=== PATIENT | female | born 1945 | race Caucasian/White ===

== ENCOUNTER 2017-06-23 12:24 | Emergency (ER) | payer MEDICARE, OTHER ==
--- NOTE | 2017-06-23 14:51 | RAD ---
RIGHT KNEE 4 VIEWS: HISTORY: Right knee pain. FINDINGS: No acute fracture or dislocation is identified. POS: [facility]
== END 2017-06-23 13:40 | disposition home or self-care (01) ==
LOC: ERS 12:24
DX: S83.91XA Sprain of unspecified site of right knee, initial encounter (principal); I48.91 Unspecified atrial fibrillation; E78.5 Hyperlipidemia, unspecified; I10 Essential (primary) hypertension; Z79.01 Long term (current) use of anticoagulants; Z79.899 Other long term (current) drug therapy; X50.1XXA Overexertion from prolonged static or awkward postures, initial encounter

== ENCOUNTER 2018-06-06 14:14 | Emergency (ER) | payer MEDICARE, OTHER ==
--- NOTE | 2018-06-06 15:54 | RAD ---
RADIOGRAPH PELVIS 1 VIEW: 06/06/18 HISTORY: 72-year-old female with pelvic pain. FINDINGS: Diffuse osteopenia. No dislocation. Femoral head contours are maintained. No significant bilateral hi p joint space narrowing. No grossly displaced fracture identified. Degenerative changes of lower lumb ar spine, incompletely imaged. IMPRESSION: 1. Lower lumbar spondylosis. 2. Otherwise negative. POS: [facility]
== END 2018-06-06 16:08 | disposition home or self-care (01) ==
LOC: ERS 14:14
DX: M54.41 Lumbago with sciatica, right side (principal); E78.5 Hyperlipidemia, unspecified; I48.91 Unspecified atrial fibrillation
CPT/HCPCS: 72170

== ENCOUNTER 2018-06-10 09:07 | Emergency (ER) | payer MEDICARE, OTHER ==
[2018-06-10] MEDS ORDERED: Dexamethasone 4 MG TAB ONE (11:15)
[2018-06-10] MEDS ORDERED: Acetaminophen/Codeine 30-300mg Tablet ONE (11:15)
[2018-06-10] MEDS ORDERED: Cyclobenzaprine 10 MG TAB ONE (11:15)
--- NOTE | 2018-06-10 11:51 | CT ---
NONCONTRAST CT LUMBAR SPINE: Date: 06/10/18 HISTORY: Right-sided back pain and numbness. Patient also complains of right groin and buttock pain, as well a s right upper leg pain for 2 months. COMPARISON: None available. FINDINGS: There is atelectasis versus scarring at each lung base. Calcified granuloma seen in the spleen. Vascular calcifications seen in the abdominal aorta involving the iliac arteries. Visualized retroperitoneal structures otherwise demonstrate a grossly normal nonenhanced CT appearanc e. Degenerative changes are seen in the lumbar spine. There is Grade I anterolisthesis of L4 on L5. T11-12 Level: There is vacuum phenomenon seen in the intervertebral discs. There are facet hypertrop hic changes seen on the left resulting in mild left-sided neural foraminal narrowing. There is mild e ffacement on the left posterolateral aspect of the subarachnoid space. Right neural foramen is patent . T12-L1 Level: There is no significant disc bulge or disc herniation. Central spinal canal and neural foramina are patent. L1-L2 Level: There is no disc bulge or disc herniation. Central spinal canal and neural foramina are patent. L2-L3 Level: There is a broad based disc osteophyte complex and facet hypertrophic changes. Findings result in mild narrowing of the central spinal canal. There is mild bilateral neural foraminal narro wing present. L3-L4 Level: There is a mild broad based disc osteophyte complex with mild facet degenerative change s present. There is mild narrowing of the central spinal canal. There is minimal bilateral neural for aminal narrowing. L4-L5 Level: There is Grade I anterolisthesis of L4 on L5 with the degree of listhesis measuring dylan roximately 4.0 mm. There is a broad based disc osteophyte complex and moderate facet hypertrophic adore nges and ligamentous thickening. Findings result in severe narrowing of the central spinal canal, as well as narrowing of the lateral recesses. There is also suggestion of a right paracentral disc extru seng which extends superiorly, likely affecting the traversing right L5 nerve root. The area of soft tissue density also abuts the exiting right L4 nerve root. There is moderate to severe right-sided ne ural foraminal narrowing. The left neural foramen is patent. L5-S1 Level: There is a mild broad based disc osteophyte complex and mild ligamentous thickening wit h severe facet hypertrophic changes. There is moderate narrowing of the central spinal canal. There i s mild bilateral neural foraminal narrowing. The traversing bilateral S1 nerve roots may potentially be affected due to the disc osteophyte complex. IMPRESSION: Multilevel degenerative changes in the lumbar spine, greatest at the L4-5 level, where there is a bro ad based disc osteophyte complex with soft tissue density seen posteriorly on the right which likely represents associated disc extrusion extending superiorly. This may affect the traversing right L5 ne rve root and also appears to contact the exiting right L4 nerve root. There is severe narrowing of th e central spinal canal at this level, as well as narrowing of the lateral recesses. POS: [facility]
== END 2018-06-10 11:51 | disposition home or self-care (01) ==
LOC: ERS 09:07
DX: M51.26 Other intervertebral disc displacement, lumbar region (principal); M48.061 Spinal stenosis, lumbar region without neurogenic claudication; I48.91 Unspecified atrial fibrillation; E78.5 Hyperlipidemia, unspecified; I10 Essential (primary) hypertension; Z79.01 Long term (current) use of anticoagulants; Z79.899 Other long term (current) drug therapy
CPT/HCPCS: 72131; J8540

== ENCOUNTER 2018-07-17 09:53 | Outpatient (CLI) | payer MEDICARE, OTHER | END 2018-07-17 09:54 | disposition home or self-care (01) | LOC: BICMAMMO 09:53 | PROVIDERS: ATTEND Family Medicine | DX: N63.24 Unspecified lump in the left breast, lower inner quadrant (principal) | CPT/HCPCS: 77065; G0279 ==

== ENCOUNTER 2020-03-05 11:11 | Observation (INO) | payer MEDICARE, OTHER ==
[2020-03-05 11:47] LABS: #Monocytes 0.4 thou/uL (0.11-0.59); %Eosinophils 0.9 % (0.0-10.0); %Lymphocytes 22.4 % (21.0-51.0); %Monocytes 9.3 % (0.0-10.0); %Neutrophils 66.5 % (42.0-75.0); Hemoglobin 12.6 g/dL (12.0-16.0); Mean Corpuscular HGB CONC 34.2 g/dL (32.0-36.0); Mean Corpuscular Hemoglobin 33.3 pg (27.0-31.0); Mean Corpuscular Volume 97.1 fL (78.0-98.0); Mean Platelet Volume 7.1 fL (7.4-10.4); Platelet Count 198 thou/uL (130-400); RBC Distribution Width 13.1 % (11.5-14.5); White Blood Cell (WBC) Count 4.5 thou/uL (4.8-10.8)
[2020-03-05 12:16] LABS: ALT (SGPT) 13 U/L (8-55); AST (SGOT) 17 U/L (5-34); Albumin 4.2 g/dL (3.4-4.8); Alkaline Phosphatase 67 U/L (40-110); Anion Gap 14 mmol/L (10-20); BUN (Urea Nitrogen) 20 mg/dL (9.8-20.1); Bilirubin, Total 0.5 mg/dL (0.2-1.2); Calc. Creatinine Clearance 0 mL/min (70-130); Calcium 9.2 mg/dL (7.8-10.44); Carbon Dioxide 25 mmol/L (23-31); Chloride 103 mmol/L (98-107); Estimated GFR-MDRD 62; Globulin 3.3 g/dL (2.4-3.5); Glucose 110 mg/dL (83-110); Potassium 4.4 mmol/L (3.5-5.1); Protein, Total 7.5 g/dL (6.0-8.3); Sodium 138 mmol/L (136-145)
[2020-03-05 12:22] LABS: Bacteria/HPF None Seen HPF (None Seen); Bilirubin Negative (Negative); Blood, Urine Negative (Negative); Clarity Clear (Clear); Glucose, Urine (Dipstick) Normal (Negative); Ketone, Urine Negative (Negative); Leukocyte 25 Leu/uL (Negative); Nitrite Negative (Negative); Protein, Urine (Dipstick) Negative (Neg-Trace); RBC/HPF 0-3 HPF (0-3); Squamous Epithelial 0-3 HPF (0-3); Urobilinogen Normal mg/dL (Less than 2); WBC/HPF 0-3 HPF (0-3); pH, Urine 6.5 (5.0-9.0)
--- NOTE | 2020-03-05 12:24 | RAD ---
PORTABLE CHEST: INDICATIONS: Dizziness and weakness. COMPARISON: 07/08/2016 FINDINGS: Mild cardiomegaly is stable. Pacemaker leads are unchanged. Lungs appear clear of infiltrate. No evid ence of vascular congestion or edema. The densely calcified nodule in the left mid lung is again note d. IMPRESSION: No acute process. POS: [facility]
--- NOTE | 2020-03-05 12:28 | CT ---
CT head noncontrast HISTORY: Dizziness. Weakness. FINDINGS: There is no evidence of acute intracranial hemorrhage or infarct. The ventricles appear nor mal in size, shape and position. There is no mass effect or shift of midline structures. IMPRESSION : No abnormalities are demonstrated.
[2020-03-05 15:33] LABS: Troponin I Less than 0.010 ng/mL (< 0.028)
[2020-03-05] MEDS ORDERED: Senokot S 8.6-50 MG TAB PO PRN (16:18)
[2020-03-05] MEDS ORDERED: Acetaminophen 325 MG TAB PO PRN (16:18)
[2020-03-05] MEDS ORDERED: Sodium Chloride 0.9% 1,000 ML IV SCH (16:30)
[2020-03-05] MEDS ORDERED: Warfarin Sodium 2.5 MG TAB PO SCH ×2 (17:00→23:59)
[2020-03-05] MEDS ORDERED: Carvedilol 6.25 MG TAB PO SCH (17:00)
[2020-03-05 17:08] LABS: INR-International Normal Ratio 1.8; PTT 35.1 sec (22.9-36.1); Prothrombin Time 20.9 sec (12.0-14.7)
[2020-03-05 17:42] LABS: Troponin I Less than 0.010 ng/mL (< 0.028)
[2020-03-05 18:32] VITALS: BMI 28.2
[2020-03-05] MEDS: Sotalol HCl 80 MG TAB PO SCH (20:35)
[2020-03-05] MEDS ORDERED: Rosuvastatin 5 MG TAB PO SCH (21:00)
[2020-03-05] MEDS ORDERED: Famotidine 20 MG TAB PO SCH (21:00)
[2020-03-06 04:29] LABS: #Lymphocytes 1.3 thou/uL (1.20-3.40); #Monocytes 0.4 thou/uL (0.11-0.59); #Neutrophils 2.6 thou/uL (1.40-6.50); %Basophils 0.5 % (0.0-1.0); %Eosinophils 0.8 % (0.0-10.0); %Lymphocytes 29.9 % (21.0-51.0); %Monocytes 9.9 % (0.0-10.0); Hemoglobin 10.5 g/dL (12.0-16.0); Mean Corpuscular HGB CONC 32.4 g/dL (32.0-36.0); Mean Corpuscular Hemoglobin 31.7 pg (27.0-31.0); Mean Corpuscular Volume 97.9 fL (78.0-98.0); Mean Platelet Volume 6.7 fL (7.4-10.4); Platelet Count 175 thou/uL (130-400); RBC Distribution Width 13.2 % (11.5-14.5); Red Blood Cell (RBC) Count 3.32 mill/uL (4.20-5.40); White Blood Cell (WBC) Count 4.4 thou/uL (4.8-10.8)
[2020-03-06 04:38] LABS: INR-International Normal Ratio 1.9; PTT 36.7 sec (22.9-36.1); Prothrombin Time 21.3 sec (12.0-14.7)
[2020-03-06 04:55] LABS: Anion Gap 10 mmol/L (10-20); BUN (Urea Nitrogen) 16 mg/dL (9.8-20.1); Calc. Creatinine Clearance 85 mL/min (70-130); Calcium 8.4 mg/dL (7.8-10.44); Carbon Dioxide 26 mmol/L (23-31); Chloride 106 mmol/L (98-107); Estimated GFR-MDRD 69; Glucose 87 mg/dL (83-110); Potassium 4.2 mmol/L (3.5-5.1); Sodium 138 mmol/L (136-145)
[2020-03-06 05:06] VITALS: TEMP 98.4
[2020-03-06] MEDS ORDERED: Spironolactone 25 MG TAB PO SCH (08:00)
[2020-03-06] MEDS ORDERED: Vit A,C & E/Lutein/Minerals Tablet PO SCH (09:00)
[2020-03-06] MEDS ORDERED: Sotalol HCl 80 MG TAB PO SCH (09:00)
[2020-03-06] MEDS: Sotalol HCl 80 MG TAB PO SCH (09:51)
[2020-03-06 11:40] VITALS: BP 128/78
[2020-03-06 11:59] LABS: SARS-CoV-2 MS2 Positive; SARS-CoV-2 N Gene Negative; SARS-CoV-2 S Gene Negative; SARS-CoV-2 by NAA Not Detected (NotDetected); SARS-CoV-2 orf1ab Negative
--- NOTE | 2020-03-06 15:18 | HP ---
PRIMARY CARE PHYSICIAN: Dr. Red. DISHWASHER PREPARER: Ulysses Callejas MD CHIEF COMPLAINT: Dizziness and lightheadedness. HISTORY OF PRESENT ILLNESS: Ms. Dang is a very pleasant 74-year-old female who reported to the emergency room today after having some dizziness and lightheadedness this morning. She reported that she took her blood pressure and systolic was in the 80s. She was started on Entresto [address] Callejas and she reports that her blood pressure has been on the lower side since she started taking it. She reported this to his office and he told her to extend the amount of time that she was to take 1 tablet once a day to 2 weeks instead of one. She did this, started taking the tablet twice a day this week and it is when she has noticed that her blood pressure and she was getting lightheaded when she changed positions. When she had the lightheaded headedness this morning, kind of a near syncope episode, she was afraid that she would actually pass out and that her would not know quite what to do, so she decided to come to the emergency room to get it checked out. She does have a pacemaker for an arrhythmia. The battery was changed by Dr. Bocanegra on Friday. She has also been on Coumadin and has been on this for quite some time, and she reports that she was asked to stop taking it for a few days before the procedure as her INR had gone into the 3s. She had the procedure when that was rechecked and it was down to 1.7, and she said she has been trying to get it back up into the 2s since that time. She said she has had quite a bit of Cardiology workup in the last couple of months as they were trying to decide if she just needed the battery change for her pacemaker or whether she needed to be upgraded to an AICD and they decided that she was fine with a battery replacement, so she underwent that on 02/25/2020. Her ER evaluation was grossly unremarkable. Troponin was negative. EKG showed ventricular paced rhythm, beats per minute 80 with no Sgarbossa criteria. She will be admitted to the telemetry unit for near-syncope and hypotension. She was given a bolus of normal saline in the emergency room today and she says she feels a little better after that. REVIEW OF SYSTEMS: All systems are reviewed and are negative unless mentioned in the HPI. PHYSICAL EXAMINATION: VITAL SIGNS: Blood pressure 99/69, pulse is 81, respiratory rate is 16, temp is 98.5, pO2 saturations are 98% on room air. CONSTITUTIONAL: She is alert and oriented to person, place, and time. HEENT: Head is atraumatic and normocephalic. Eyes, pupils are equal to light. Extraocular muscles are intact. ENT, mouth exam is normal. Mucous membranes are moist. NECK: Normal range of motion. No tenderness. RESPIRATORY: Chest, she has normal breath sounds. Chest expansion is equal. CARDIOVASCULAR: Regular rate and rhythm. Heart sounds are normal. ABDOMEN: Nontender. Bowel sounds are heard. BACK: Normal inspection. No tenderness. EXTREMITIES: Upper extremity, normal range of motion. Motor strength is normal. Radial pulses are normal. Lower extremity, normal range of motion. Motor strength is normal. Pedal pulses are normal. There is no edema noted. NEUROLOGIC: The patient is oriented to person, place, and time. Speech is normal. SKIN: Warm and dry. ALLERGIES: ASPIRIN, CHOCOLATE, INSECTS, NSAIDS, SHELLFISH, SULFA. CURRENT MEDICATIONS: As per the ER record, 1. Crestor 5 mg p.o. once a day. 2. Coreg 12.5 x 1.5 tabs p.o. b.i.d. 3. Sotalol 120 mg p.o. b.i.d. 4. Warfarin 5 mg Friday, Friday, and Friday; 2.5 mg Tuesdays and . 5. Spironolactone 25 mg p.o. once a day. 6. Potassium chloride 10 mEq p.o. once a day. 7. Protonix 40 mg p.o. once a day. 8. Furosemide 20 mg p.o. once a day. 9. Entresto one tablet p.o. b.i.d. PAST MEDICAL HISTORY: Arrhythmia, atrial fibrillation ablation x2, pacemaker placed in 2013 and battery was replaced on 02/25/2020. She also has a history of hypertension. PAST SURGICAL HISTORY: Pacemaker placement and battery change. PSYCHIATRIC HISTORY: None. SOCIAL HISTORY: Denies any alcohol or drug use. She has no smoking history. FAMILY HISTORY: Noncontributory. ASSESSMENT AND PLAN: 1. Hypotension in the context of adding Entresto to her daily regimen 3 weeks ago. She reports that she has been having issues with her blood pressure dipping down in the 100s, today it was down systolic in the 80s. She has been taking one tab a day for 2 weeks and then increased it to twice a day this week. We will get orthostatic vital signs, decrease her Coreg, hold her Lasix and spironolactone for now. Gentle hydration with normal saline at 50 mL per hour. We will ask Dr. Callejas to consult. 2. History of hypertension and arrhythmias. We will restart home medications with some revisions. We will continue her sotalol and her Entresto. Decrease her Coreg to 6.25 mg p.o. b.i.d. 3. Anticoagulant use on Coumadin. We will recheck her INR today. Restart Coumadin. Adjust as needed. Recheck her INRs daily. 4. Deep venous thrombosis and gastrointestinal prophylaxis started. 5. Case was discussed with Dr. Luz. 6. Hospital course dependent on clinical findings. Job ID: [id number]
[2020-03-06] MEDS ORDERED: Warfarin Sodium 5 MG TAB PO SCH ×2 (17:00)
--- NOTE | 2020-03-06 22:08 | PRG ---
DATE OF SERVICE: 03/06/2020 SUBJECTIVE: Ms. Dang came to the hospital. She has been brought in for observation. She has a low blood pressure and near syncope. She recently had her pacemaker upgraded to a biventricular pacemaker. The patient states she has noted that she has no swelling of her ankles for the first time in a long time, but her blood pressure has been running low. Her blood pressure is in the 80s systolic here yesterday. Today, she is feeling better. She got some fluid. OBJECTIVE: VITAL SIGNS: Her blood pressure is 120 systolic. LUNGS: On exam, lungs are clear. CARDIAC: Normal S1, normal S2. The biventricular pacemaker is functioning normally. She has occasional atrial arrhythmias as before. ABDOMEN: Soft, nontender. EXTREMITIES: There is no edema. ASSESSMENT: 1. Congestive heart failure, systolic-diastolic mixed. She is previously volume depleted, now euvolemic. 2. Hypotension, improved. 3. Ejection fraction 40% to 45% on echo here. PLAN: 1. She is on sotalol 120 mg twice a day. Therefore, we will stop carvedilol since she is on this dose of beta-telly with orthostatic hypotension. The sotalol is a beta-telly. 2. Continue Entresto which has angiotensin receptor telly. 3. Stop Lasix and continue spironolactone. 4. Okay to be discharged home. Job ID: [id number]
--- NOTE | 2020-03-07 06:52 | DIS ---
DATE OF ADMISSION: 03/05/2020 DATE OF DISCHARGE: 03/06/2020 HISTORY OF PRESENT ILLNESS: Ms. Dang is a 74-year-old female with medical history of heart failure, atrial fibrillation status post ablation x2 (on sotalol), who presented with lightheadedness and dizziness and self-reported hypotension. She was diagnosed with presyncope due to side effects of polypharmacy. Cardiology was consulted and stopped Lasix, Coreg, and reduced Entresto dosage. Echocardiography showed an ejection fraction of 40% to 45% suggesting systolic dysfunction. On the day of discharge, the patient was hemodynamically stable, feeling well, ambulating without lightheadedness or dizziness. PHYSICAL EXAMINATION: VITAL SIGNS: Blood pressure 128/78, pulse is 93, respiratory rate 18, oxygen saturation 97% on room air, temperature 98.4. GENERAL EXAM: Lying comfortably in bed, awake and alert. HEENT: Normocephalic and atraumatic. CARDIAC: Regular rate and rhythm. No murmurs, gallops, or rubs. LUNGS: Clear to auscultation bilaterally. No wheezing, rales, or rhonchi. GI EXAM: Soft, nontender, nondistended. Normal bowel sounds. EXTREMITIES: No edema. PSYCHIATRIC: Proper mood and affect. Alert and oriented x3. MEDICATION LIST: No new medications. Modified medications: Entresto, dosage was decreased from 24 mg/26 mg two tabs twice daily to one tab twice daily per Cardiology. Discontinued medications: Coreg and Lasix were discontinued per Cardiology. Continued medications: 1. Multivitamin. 2. Pantoprazole. 3. Rosuvastatin. 4. Spironolactone. 5. Warfarin. Job ID: [id number]
[2020-03-07] MEDS ORDERED: Warfarin Sodium 2.5 MG TAB PO SCH (09:00)
--- NOTE | 2020-03-11 13:59 | EKG ---
Test Reason : Blood Pressure : / mmHG Vent. Rate : 080 BPM Atrial Rate : 071 BPM P-R Int : 000 ms QRS Dur : 102 ms QT Int : 446 ms P-R-T Axes : 000 -21 047 degrees QTc Int : 514 ms Ventricular-paced rhythm Abnormal ECG Confirmed by TRAY TELLES MD ([id number]), editorial writer TOMAS DIXON ([id number]) on 03/11/2020 1:58:52 PM Referred By: Confirmed By:TRAY TELLES MD
== END 2020-03-06 17:12 | disposition home or self-care (01) ==
LOC: ERS 11:11 → 2SW 13:56
PROVIDERS: ADMIT Internal Medicine; ATTEND Internal Medicine
DX: R55 Syncope and collapse (principal); T50.915A Adverse effect of multiple unspecified drugs, medicaments and biological substances, initial encounter; I95.9 Hypotension, unspecified; I11.0 Hypertensive heart disease with heart failure; I50.40 Unspecified combined systolic (congestive) and diastolic (congestive) heart failure; I48.91 Unspecified atrial fibrillation; E78.5 Hyperlipidemia, unspecified; Z79.01 Long term (current) use of anticoagulants; Z79.899 Other long term (current) drug therapy; Z88.2 Allergy status to sulfonamides; Z88.6 Allergy status to analgesic agent; Z88.8 Allergy status to other drugs, medicaments and biological substances; Z91.013 Allergy to seafood; Z91.018 Allergy to other foods; Z91.038 Other insect allergy status; Z95.0 Presence of cardiac pacemaker; Z20.828 Contact with and (suspected) exposure to other viral communicable diseases
CPT/HCPCS: 51701; 70450; 71045; 80048; 80053; 83880; 84484 ×2; 85025 ×2; 85610 ×2; 85730 ×2; 87077; 87086; 87186; 93005; 93306; 96360; 99285; U0003; 36415; 81003; 81015; 87635; 96361; G0378

== ENCOUNTER 2020-05-27 07:48 | Emergency (ER) | payer MEDICARE, OTHER ==
[2020-05-27 08:40] LABS: #Lymphocytes 0.9 thou/uL (1.20-3.40); #Monocytes 0.3 thou/uL (0.11-0.59); #Neutrophils 2.9 thou/uL (1.40-6.50); %Basophils 0.5 % (0.0-1.0); %Eosinophils 0.5 % (0.0-10.0); %Lymphocytes 22.1 % (21.0-51.0); %Monocytes 7.9 % (0.0-10.0); Hemoglobin 11.7 g/dL (12.0-16.0); Mean Corpuscular HGB CONC 33.1 g/dL (32.0-36.0); Mean Corpuscular Hemoglobin 32.7 pg (27.0-31.0); Mean Corpuscular Volume 98.6 fL (78.0-98.0); Mean Platelet Volume 7.2 fL (7.4-10.4); Platelet Count 175 thou/uL (130-400); RBC Distribution Width 12.8 % (11.5-14.5); Red Blood Cell (RBC) Count 3.57 mill/uL (4.20-5.40); White Blood Cell (WBC) Count 4.2 thou/uL (4.8-10.8)
--- NOTE | 2020-05-27 09:03 | RAD ---
AP CHEST: HISTORY: Palpitations. FINDINGS: Lungs are clear of infiltrate. Heart and mediastinum unremarkable. Pacemaker leads are noted. Calc ified granuloma in the left lung again noted. IMPRESSION: No acute finding. POS: [facility]
[2020-05-27 09:10] LABS: ALT (SGPT) 7 U/L (8-55); AST (SGOT) 16 U/L (5-34); Albumin 4.1 g/dL (3.4-4.8); Alkaline Phosphatase 59 U/L (40-110); Anion Gap 14 mmol/L (10-20); BUN (Urea Nitrogen) 11 mg/dL (9.8-20.1); Bilirubin, Total 0.6 mg/dL (0.2-1.2); Calc. Creatinine Clearance 0 mL/min (70-130); Calcium 9.2 mg/dL (7.8-10.44); Carbon Dioxide 27 mmol/L (23-31); Chloride 106 mmol/L (98-107); Globulin 3.1 g/dL (2.4-3.5); Glucose 99 mg/dL (83-110); Potassium 3.9 mmol/L (3.5-5.1); Protein, Total 7.2 g/dL (6.0-8.3); Sodium 143 mmol/L (136-145)
[2020-05-27 09:14] LABS: Bacteria/HPF 4+ HPF (None Seen); Bilirubin Negative (Negative); Blood, Urine Negative (Negative); Clarity Clear (Clear); Glucose, Urine (Dipstick) Normal (Negative); Ketone, Urine Negative (Negative); Leukocyte Negative Leu/uL (Negative); Nitrite 2+ (Negative); Protein, Urine (Dipstick) 20 mg/dL (Neg-Trace); RBC/HPF 0-3 HPF (0-3); Squamous Epithelial 0-3 HPF (0-3); Urobilinogen Normal mg/dL (Less than 2); pH, Urine 6.5 (5.0-9.0)
[2020-05-27 10:11] LABS: PTT 38.8 sec (22.9-36.1)
[2020-05-27 10:16] LABS: Prothrombin Time 22.8 sec (12.0-14.7)
== END 2020-05-27 12:15 | disposition home or self-care (01) ==
LOC: ERS 07:48
DX: R00.2 Palpitations (principal); I48.91 Unspecified atrial fibrillation; E78.5 Hyperlipidemia, unspecified; I10 Essential (primary) hypertension; Z79.01 Long term (current) use of anticoagulants; Z79.899 Other long term (current) drug therapy
CPT/HCPCS: 36415; 71045; 80053; 81003; 81015; 84443; 84484; 85025; 85610; 85730; 93005

== ENCOUNTER 2020-05-29 10:45 | Outpatient (CLI) | payer MEDICARE, OTHER ==
--- NOTE | 2020-05-29 13:16 | MMO ---
Bilateral MAMMO Bilat Screen [facility]. CLINICAL HISTORY: Patient is 74 years old and is seen for screening. The patient has no family history of breast cancer. The patient has no personal history of cancer. VIEWS: The views performed were: bilateral craniocaudal with tomosynthesis and bilateral mediolateral oblique with tomosynthesis. FILMS COMPARED: The present examination has been compared to prior imaging studies performed at and at [facility] on 07/17/2018. This study has been interpreted with the assistance of computer-aided detection. MAMMOGRAM FINDINGS: There are scattered fibroglandular densities. Benign calcifications are noted bilaterally. There are no suspicious masses, suspicious calcifications, or new areas of architectural distortion. IMPRESSION: THERE IS NO MAMMOGRAPHIC EVIDENCE OF MALIGNANCY. A ROUTINE FOLLOW-UP MAMMOGRAM IN 1 YEAR IS RECOMMENDED. THE RESULTS OF THIS EXAM WERE SENT TO THE PATIENT. ACR BI-RADS Category 2 - Benign finding MAMMOGRAPHY NOTE: 1. A negative mammogram report should not delay a biopsy if a dominant of clinically suspicious mass is present. 2. Approximately 10% to 15% of breast cancers are not detected by mammography. 3. Adenosis and dense breasts may obscure an underlying neoplasm. Reported by: AMIRAH BECERRIL MD Electonically Signed: [id number]
== END 2020-05-29 10:46 | disposition home or self-care (01) ==
LOC: BICMAMMO 10:45
PROVIDERS: ATTEND Family Medicine
DX: Z12.31 Encounter for screening mammogram for malignant neoplasm of breast (principal)
CPT/HCPCS: 77063; 77067

== ENCOUNTER 2021-05-29 18:07 | Emergency (ER) | payer MEDICARE, OTHER | END 2021-05-29 20:07 | disposition home or self-care (01) | LOC: ERS 18:07 | DX: S83.92XA Sprain of unspecified site of left knee, initial encounter (principal); I48.91 Unspecified atrial fibrillation; E78.5 Hyperlipidemia, unspecified; I10 Essential (primary) hypertension; Z79.899 Other long term (current) drug therapy; Z79.01 Long term (current) use of anticoagulants; X50.9XXA Other and unspecified overexertion or strenuous movements or postures, initial encounter ==

== ENCOUNTER 2022-03-14 11:48 | Emergency (ER) | payer MEDICARE ==
[2022-03-14] MEDS ORDERED: Acetaminophen 500 MG TAB ONE (13:14)
== END 2022-03-14 18:03 | disposition home or self-care (01) ==
LOC: ERS 11:48
DX: S32.010A Wedge compression fracture of first lumbar vertebra, initial encounter for closed fracture (principal); I10 Essential (primary) hypertension; E78.5 Hyperlipidemia, unspecified; I48.91 Unspecified atrial fibrillation; W18.30XA Fall on same level, unspecified, initial encounter; Z95.0 Presence of cardiac pacemaker; Z79.01 Long term (current) use of anticoagulants; Z79.899 Other long term (current) drug therapy
CPT/HCPCS: 72131; 72170; 93005

== ENCOUNTER 2022-06-06 09:35 | Outpatient (CLI) | payer MEDICARE | END 2022-06-06 09:36 | disposition home or self-care (01) | LOC: TBSIIMAG 09:35 | PROVIDERS: ATTEND Neurological Surgery | DX: M54.50 Low back pain, unspecified (principal); M47.816 Spondylosis without myelopathy or radiculopathy, lumbar region; S32.010A Wedge compression fracture of first lumbar vertebra, initial encounter for closed fracture; M51.36 Other intervertebral disc degeneration, lumbar region; M51.35 Other intervertebral disc degeneration, thoracolumbar region | CPT/HCPCS: 72100 ==

== ENCOUNTER 2024-06-13 16:25 | Inpatient (IN) | payer MEDICARE ==
[2024-06-13 17:05] LABS: #Basophils Less than 0.03 10x3/uL (0.0-0.2); %Basophils 0.2 % (0.0-1.0); %Eosinophils 1.5 % (0.0-10.0); %Lymphocytes 22.3 % (21.0-51.0); %Monocytes 9.9 % (0.0-10.0); %Neutrophils 65.9 % (42.0-75.0); Hematocrit 32.8 % (36.0-47.0); Hemoglobin 10.7 g/dL (12.0-16.0); Mean Corpuscular HGB CONC 32.6 g/dL (32.0-36.0); Mean Corpuscular Hemoglobin 32.1 pg (27.0-31.0); Mean Corpuscular Volume 98.5 fL (78.0-98.0); Mean Platelet Volume 9.1 fL (7.4-10.4); Platelet Count 149 10x3/uL (130-400); RBC Distribution Width 13.6 % (11.5-14.5); Red Blood Cell (RBC) Count 3.33 mill/uL (4.20-5.40)
[2024-06-13] MEDS ORDERED: Meclizine HCl 25 MG TAB ONE (17:16)
[2024-06-13 17:21] LABS: ALT (SGPT) 12 U/L (8-55); AST (SGOT) 15 U/L (5-34); Albumin 3.9 g/dL (3.4-4.8); Alkaline Phosphatase 59 U/L (40-110); Anion Gap 13 mmol/L (10-20); BUN (Urea Nitrogen) 13 mg/dL (9.8-20.1); Bilirubin, Total 0.5 mg/dL (0.2-1.2); Calc. Creatinine Clearance 0 mL/min (70-130); Calcium 9.1 mg/dL (7.8-10.44); Carbon Dioxide 27 mmol/L (23-31); Chloride 107 mmol/L (98-107); Estimated GFR 77; Globulin 3.2 g/dL (2.4-3.5); Glucose 114 mg/dL (83-110); Magnesium 2.3 mg/dL (1.6-2.6); Potassium 3.7 mmol/L (3.5-5.1); Protein, Total 7.1 g/dL (5.8-8.1); Sodium 143 mmol/L (136-145)
[2024-06-13 17:25] LABS: Troponin I Less than 0.010 ng/mL (< 0.028)
[2024-06-13 17:50] LABS: Bacteria/HPF 4+ HPF (None Seen); Bilirubin Negative (Negative); Blood, Urine Trace (Negative); CAUTI Indications for Culture Immunosuppressed; Clarity Clear (Clear); Glucose, Urine (Dipstick) 150 mg/dL (Negative); Ketone, Urine Negative (Negative); Leukocyte 75 Leu/uL (Negative); Nitrite Negative (Negative); Protein, Urine (Dipstick) Negative (Neg-Trace); RBC/HPF 0-3 HPF (0-3); Specific Gravity, Urine 1.005 (1.002-1.036); Squamous Epithelial 0-3 HPF (0-3); Urobilinogen Normal mg/dL (Less than 2)
[2024-06-13 17:54] LABS: Urine Culture Reflex Yes Yes
[2024-06-13] MEDS ORDERED: Sodium Chloride 0.9% 100 ML ONE (18:20)
[2024-06-13] MEDS ORDERED: cefTRIAXone (ROCEPHIN) 2 GM VIAL ONE (18:20)
[2024-06-13] MEDS ORDERED: Acetaminophen 325 MG TAB PO PRN (20:10)
[2024-06-13] MEDS ORDERED: Senokot S 8.6-50 MG TAB PO PRN (20:10)
[2024-06-13] MEDS: Apixaban 5 MG TAB PO SCH (21:02)
[2024-06-13] MEDS: Meclizine HCl 25 MG TAB PO SCH (21:02)
[2024-06-13 21:04] VITALS: BMI 28.7
[2024-06-13 21:06] LABS: Troponin I Less than 0.010 ng/mL (< 0.028)
[2024-06-13 23:51] LABS: Troponin I Less than 0.010 ng/mL (< 0.028)
[2024-06-14 04:15] LABS: #Basophils Less than 0.03 10x3/uL (0.0-0.2); %Basophils 0.3 % (0.0-1.0); %Eosinophils 1.2 % (0.0-10.0); %Lymphocytes 27.8 % (21.0-51.0); %Monocytes 11.6 % (0.0-10.0); %Neutrophils 58.8 % (42.0-75.0); Hematocrit 28.1 % (36.0-47.0); Hemoglobin 9.3 g/dL (12.0-16.0); Mean Corpuscular HGB CONC 33.1 g/dL (32.0-36.0); Mean Corpuscular Hemoglobin 32.3 pg (27.0-31.0); Mean Corpuscular Volume 97.6 fL (78.0-98.0); Mean Platelet Volume 9.6 fL (7.4-10.4); Platelet Count 128 10x3/uL (130-400); RBC Distribution Width 13.5 % (11.5-14.5); Red Blood Cell (RBC) Count 2.88 mill/uL (4.20-5.40)
[2024-06-14 04:37] LABS: Anion Gap 13 mmol/L (10-20); BUN (Urea Nitrogen) 9 mg/dL (9.8-20.1); Calc. Creatinine Clearance 87 mL/min (70-130); Calcium 8.4 mg/dL (7.8-10.44); Carbon Dioxide 25 mmol/L (23-31); Chloride 109 mmol/L (98-107); Estimated GFR 90; Glucose 85 mg/dL (83-110); Potassium 3.7 mmol/L (3.5-5.1); Sodium 143 mmol/L (136-145)
[2024-06-14] MEDS: Pantoprazole DR 40 MG TAB PO SCH (08:06)
[2024-06-14] MEDS: cefTRIAXone\\ROCEPHIN 1 GM in Sodium Chloride 0.9% 100 ML IVPB SCH ×2 (18:32→21:35)
[2024-06-14] MEDS: cefTRIAXone (ROCEPHIN) 1 GM VIAL ONE ×2 (18:32→21:48)
[2024-06-15 11:19] VITALS: BP 133/64; TEMP 97.7
== END 2024-06-15 14:48 | disposition home or self-care (01) | DRG 309 ==
LOC: ERS 16:25 → 2SE 19:18 → OBSVTOIN 06-15 00:58
PROVIDERS: ADMIT Internal Medicine; ATTEND Family Medicine
DX: T82.190A Other mechanical complication of cardiac electrode, initial encounter (principal); I42.8 Other cardiomyopathies; I48.19 Other persistent atrial fibrillation; I50.22 Chronic systolic (congestive) heart failure; N39.0 Urinary tract infection, site not specified; T82.110A Breakdown (mechanical) of cardiac electrode, initial encounter; I25.10 Atherosclerotic heart disease of native coronary artery without angina pectoris; Z95.0 Presence of cardiac pacemaker; I10 Essential (primary) hypertension; Z88.2 Allergy status to sulfonamides; Z91.013 Allergy to seafood; Z88.8 Allergy status to other drugs, medicaments and biological substances
CPT/HCPCS: 36415; 36416; 70496; 70498; 70551; 71045; 80048; 80053; 81001; 83605; 83735; 83880; 84443; 84484; 85025; 87040; 87077; 87086; 87186; 93005; 93306; 96365; 96374; G0378; J0696

== ENCOUNTER 2025-01-29 15:17 | Emergency (ER) | payer MEDICARE ==
[~2025-01-29 15:17] MED LIST: Iopamidol 370 76% 100 ML VIAL ONE
[2025-01-29 16:19] LABS: CAUTI Indications for Culture Pelvic or flank pain; Glucose, Urine (Dipstick) 300 mg/dL (Negative); Leukocyte 25 Leu/uL (Negative); Protein, Urine (Dipstick) Negative (Neg-Trace); Specific Gravity, Urine 1.023 (1.002-1.036)
[2025-01-29 16:29] LABS: RBC/HPF 0-3 HPF (0-3)
[2025-01-29 16:30] LABS: Bacteria/HPF Rare-Few HPF (None Seen); Yeast-Budding Rare HPF (None Seen)
[2025-01-29 16:31] LABS: Urine Culture Reflex No No
[2025-01-29] MEDS ORDERED: Ketorolac Tromethamine 30 MG (1 mL) VIAL ONE (16:56)
[2025-01-29 17:04] LABS: #Basophils Less than 0.03 10x3/uL (0.0-0.2); #Eosinophils Less than 0.03 10x3/uL (0.0-0.7); #Monocytes 0.35 10x3/uL (0.11-0.59); #Neutrophils 2.38 10x3/uL (1.40-6.50); %Basophils 0.3 % (0.0-1.0); %Eosinophils 0.5 % (0.0-10.0); %Lymphocytes 25.1 % (21.0-51.0); %Monocytes 9.5 % (0.0-10.0); %Neutrophils 64.3 % (42.0-75.0); Hematocrit 33.0 % (36.0-47.0); Hemoglobin 10.7 g/dL (12.0-16.0); Mean Corpuscular Hemoglobin 31.9 pg (27.0-31.0); Mean Corpuscular Volume 98.5 fL (78.0-98.0); Platelet Count 151 10x3/uL (130-400); Red Blood Cell (RBC) Count 3.35 mill/uL (4.20-5.40); White Blood Cell (WBC) Count 3.70 10x3/uL (4.8-10.8)
[2025-01-29] MEDS ORDERED: Acetaminophen 500 MG TAB ONE (17:13)
[2025-01-29 17:18] LABS: ALT (SGPT) 9 U/L (Less than 34); AST (SGOT) 18 U/L (11-34); Albumin 4.3 g/dL (3.1-4.5); Alkaline Phosphatase 61 U/L (40-110); Anion Gap 16 mmol/L (10-20); BUN (Urea Nitrogen) 11 mg/dL (9.8-20.1); Bilirubin, Total 0.6 mg/dL (0.3-1.2); Calc. Creatinine Clearance 0 mL/min (70-130); Calcium 9.0 mg/dL (7.8-10.44); Carbon Dioxide 29 mmol/L (23-31); Chloride 102 mmol/L (98-107); Globulin 3.1 g/dL (2.4-3.5); Glucose 109 mg/dL (83-110); Lipase 18 U/L (8-78); Potassium 4.0 mmol/L (3.5-5.1); Sodium 143 mmol/L (136-145)
[2025-01-29 17:22] LABS: Troponin I Less than 0.010 ng/mL (< 0.028)
== END 2025-01-29 19:34 | disposition home or self-care (01) ==
LOC: ERS 15:17
DX: R10.9 Unspecified abdominal pain (principal); I10 Essential (primary) hypertension; E78.5 Hyperlipidemia, unspecified; I48.91 Unspecified atrial fibrillation; Z95.0 Presence of cardiac pacemaker; Z79.899 Other long term (current) drug therapy; Z79.01 Long term (current) use of anticoagulants
CPT/HCPCS: 74177; 80053; 81001; 83690; 84484; 85025; J1885; Q9967